=== PATIENT | female | born 1985 | race Two or more races ===

== ENCOUNTER 2020-09-17 07:32 | Inpatient (IN) | payer OTHER ==
[~2020-09-17] VITALS: Ht 162.6 cm; Wt 59.0 kg
[~2020-09-17 07:32] MED LIST: BENTYL10 MG/ML IM; ZANTAC 2525 MG PO
[2020-09-17] MEDS ORDERED: PREVACID15 MG PO (07:38)
[2020-09-17] MEDS ORDERED: GAVISCON 80-141 EACH PO (07:38)
[2020-09-17] MEDS ORDERED: PRENATABS FA T1 EACH PO (07:39)
[2020-09-17] MEDS ORDERED: ACIDOPHILUS1 EAC1 PO (07:39)
[2020-09-18] MEDS ORDERED: DOXYLAMINE-PYR1 EACH (11:32)
[2020-09-19] MEDS ORDERED: CODE1TAB37 PO (07:50)
== END 2020-09-19 09:04 | disposition home or self-care (01) | DRG 833 ==
LOC: ER 07:32 → OB/GYN 11:03 → LDR 11:03 → OB/GYN 09-18 08:19
PROVIDERS: ADMIT Obstetrics & Gynecology Maternal & Fetal Medicine; ATTEND Obstetrics & Gynecology Maternal & Fetal Medicine
PROC: BY4CZZZ Ultrasonography of Second Trimester, Single Fetus (ICD-10-PCS; principal; 2020-09-17)
PROC: 4A1HXFZ Monitoring of Products of Conception, Cardiac Rhythm, External Approach (ICD-10-PCS; 2020-09-17)
DX: O34.12 Maternal care for benign tumor of corpus uteri, second trimester (principal); D25.9 Leiomyoma of uterus, unspecified; Z3A.16 16 weeks gestation of pregnancy; Z20.822 Contact with and (suspected) exposure to COVID-19

== ENCOUNTER 2021-02-08 09:52 | Inpatient (IN) | payer OTHER ==
[~2021-02-08] VITALS: Ht 162.6 cm; Wt 2.3 kg
[~2021-02-08 09:52] MED LIST changes: +ACIDOPHILUS1 EAC1 PO; +CODE1TAB37 PO; +DOXYLAMINE-PYR1 EACH; +GAVISCON 80-141 EACH PO; +PRENATABS FA T1 EACH PO; +PREVACID15 MG PO
== END 2021-02-10 15:39 | disposition home or self-care (01) | DRG 788 ==
LOC: NST 09:52 → LDR 11:15 → O/R 11:15 → OB/GYN 15:13
PROVIDERS: ADMIT Obstetrics & Gynecology Maternal & Fetal Medicine; ATTEND Obstetrics & Gynecology Maternal & Fetal Medicine
PROC: 4A1HXFZ Monitoring of Products of Conception, Cardiac Rhythm, External Approach (ICD-10-PCS; 2021-02-08)
PROC: 10D00Z1 Extraction of Products of Conception, Low, Open Approach (ICD-10-PCS; principal; 2021-02-08 13:00)
DX: O64.1XX0 Obstructed labor due to breech presentation, not applicable or unspecified (principal); O76 Abnormality in fetal heart rate and rhythm complicating labor and delivery; O65.5 Obstructed labor due to abnormality of maternal pelvic organs; O34.13 Maternal care for benign tumor of corpus uteri, third trimester; D25.9 Leiomyoma of uterus, unspecified; Z3A.37 37 weeks gestation of pregnancy; Z37.0 Single live birth; Z20.822 Contact with and (suspected) exposure to COVID-19

== ENCOUNTER 2021-08-23 18:37 | Emergency (ER) | payer OTHER ==
[~2021-08-23] VITALS: Ht 162.6 cm; Wt 61.7 kg
== END 2021-08-23 21:10 | disposition home or self-care (01) ==
LOC: ER 18:37
DX: K52.9 Noninfective gastroenteritis and colitis, unspecified (principal)

== ENCOUNTER 2022-02-25 07:15 | Inpatient (IN) | payer OTHER ==
[~2022-02-25] VITALS: Ht 162.6 cm; Wt 59.0 kg
[2022-03-01] MEDS ORDERED: ACETAMINOPHEN-1 EAC2 PO (07:30)
[2022-03-01] MEDS ORDERED: KETO10TA2 PO (07:30)
== END 2022-03-01 11:35 | disposition home or self-care (01) | DRG 743 ==
LOC: OB/GYN 02-27 06:49 → O/R 02-27 06:49 → OB/GYN 02-27 06:49
PROVIDERS: ADMIT Obstetrics & Gynecology Maternal & Fetal Medicine; ATTEND Obstetrics & Gynecology Maternal & Fetal Medicine
PROC: 0UB90ZZ Excision of Uterus, Open Approach (ICD-10-PCS; principal; 2022-02-27 08:15)
DX: D25.9 Leiomyoma of uterus, unspecified (principal); Z20.822 Contact with and (suspected) exposure to COVID-19

== ENCOUNTER 2024-04-09 15:47 | Emergency (ER) | payer OTHER ==
[~2024-04-09] VITALS: Ht 162.6 cm; Wt 59.0 kg
[~2024-04-09 15:47] MED LIST changes: +ACETAMINOPHEN-1 EAC2 PO; +KETO10TA2 PO
[2024-04-09] MEDS ORDERED: FAMOTIDINE/PF 20 MG in 0.9 % SODIUM CHLORIDE 8 ML IV PUSH STA (17:17)
[2024-04-09] MEDS ORDERED: KETOROLAC TROMETHAMINE 30 MG VIAL ONE (17:22)
[2024-04-09] MEDS ORDERED: ONDANSETRON HCL 2 MG/ML VIAL ONE (17:23)
[2024-04-09] MEDS ORDERED: FAMOTIDINE/PF 20 MG/2 ML VIAL ONE (17:23)
[2024-04-09] MEDS ORDERED: 0.9 % SODIUM CHLORIDE 1,000 ML IV SCH (17:30)
[2024-04-09] MEDS ORDERED: ONDANSETRON HCL 2 MG/ML VIAL IV ONE (17:30)
[2024-04-09] MEDS ORDERED: KETOROLAC TROMETHAMINE 30 MG VIAL IV ONE (17:30)
[2024-04-09 17:45] LABS: HEMATOCRIT 41.5 % (36.0-45.00); HEMOGLOBIN 14.3 g/dL (12.0-15.00); MEAN CELL VOLUME 91.3 fL (80.00-100.00); MEAN CORPUSCULAR HEMOGLOBIN 31.5 pg (27.00-32.0); MEAN CORPUSCULAR HGB CONC 34.5 g/dl (32.0-36.0); PLATELET COUNT 263 K/uL (150-450); RED BLOOD COUNT 4.54 M/uL (4.00-6.00); RED CELL DISTRIBUTION WIDTH 13.3 % (11.5-14.5)
[2024-04-09 18:04] LABS: ALBUMIN 4.3 gm/dL (3.4-5.0); BILIRUBIN TOTAL 0.51 mg/dL (0.3-1.2); CREATININE SERUM 0.64 mg/dL (0.55-1.02); GFR 102.78; GLOBULINA 3.8 G/DL (2.4-3.5); POTASSIUM 3.74 mEq/L (3.5-5.1); TOTAL PROTEIN 8.1 gm/dL (6.4-8.2)
[2024-04-09] MEDS ORDERED: PEPCID AC20 MG PO (18:40)
[2024-04-09] MEDS ORDERED: ONDANSETRON ODT8 MG PO (18:40)
== END 2024-04-09 19:07 | disposition home or self-care (01) ==
LOC: ER 15:48
PROVIDERS: General Practice
DX: K29.70 Gastritis, unspecified, without bleeding (principal); Z88.2 Allergy status to sulfonamides; Z88.8 Allergy status to other drugs, medicaments and biological substances